=== PATIENT | male | born 1965 | race Two or more races ===

== ENCOUNTER 2023-02-21 13:25 | Emergency (ER) | payer MEDICAID ==
[~2023-02-21] VITALS: Ht 180.3 cm; Wt 68.4 kg
[2023-02-21] MEDS ORDERED: IOHEXOL 300 MG/ML 100ML BOTTLE IJ ONE (14:33)
[2023-02-21 14:37] LABS: Basophils # (auto) 0 10 ^3/uL (0-0.2); Basophils % (auto) 0.7 % (0.0-2.0); Eosinophils # (auto) 0.1 10 ^3/uL (0-0.8); Eosinophils % (auto) 1.2 % (0.0-7.0); Hematocrit 40.2 % (41.0-53.0); Hemoglobin 13.5 g/dL (13.5-17.5); Lymphocytes # (auto) 1.7 10 ^3/uL (0.4-5.4); Lymphocytes % (auto) 35.7 % (10.0-50.0); Mean Corpuscular Hemoglobin 29.4 pg (28.0-32.0); Mean Corpuscular Hgb Conc. 33.5 g/dL (32.0-36.0); Mean Corpuscular Volume 87.6 fL (80.0-100.0); Monocytes # (auto) 0.4 10 ^3/uL (0-1.3); Monocytes % (auto) 8.8 % (0.0-12.0); Neutrophils # (auto) 2.6 10 ^3/uL (1.6-8.6); Neutrophils % (auto) 53.6 % (37.0-80.0); Nucleated Red Blood Cells % 0.1 %; Red Blood Cells 4.59 10^6/uL (4.5-5.90); Red Cell Distribution Width 15.5 % (11.8-14.3); White Blood Cell 4.8 10^3/uL (4.4-10.8)
[2023-02-21 14:53] LABS: Albumin 3.9 g/dL (3.4-5.0); BUN/Creatinine Ratio 20.5 (10.0-20.0); Calcium 8.7 mg/dL (8.5-10.1)
[2023-02-21 14:56] LABS: Bilirubin, Total 1.1 mg/dL (0.2-1.0)
[2023-02-21 16:02] VITALS: BP 117/69; PULSE 52; RESP 18; TEMP 97.9; O2SAT 96
== END 2023-02-21 16:05 | disposition home or self-care (01) ==
LOC: ER 13:25
DX: K43.9 Ventral hernia without obstruction or gangrene (principal); Z87.891 Personal history of nicotine dependence
CPT/HCPCS: 36415; 74177; 80053; 85025; 93005; 99285; Q9967